=== PATIENT | female | born 1980 ===

== ENCOUNTER → 2018-07-18 | Outpatient (CLI) | payer OTHER ==
[~2018-07-18] MED LIST: ACE3 PO; CYC10 PO; DICL1TAB52 PO; ESC10 PO; FER325 PO; HYDR-654 PO; IBU800 PO; KET10 PO; LOR5 PO; MELO-207 PO; METH-542 PO; METHO500 PO; NO ROUTINE MEDS; OXYC-823 PO; OXYC1TAB54 PO; PER PO; PREN-127 PO; TOPI50TA92 PO; [UNRECOGNIZED DRUG - REMARK]
[2018-07-18 17:09] LABS: LDL CHOLESTEROL 116 mg/dl
== END ==
LOC: LAB 16:15
PROVIDERS: ATTEND Clinical Nurse Specialist Family Health
DX: R53.83 Other fatigue (principal); Z79.899 Other long term (current) drug therapy
CPT/HCPCS: 36415; 82040; 82247; 82310; 82374; 82435; 82465; 82565; 82947; 83718; 84075; 84132; 84155; 84295; 84443; 84450; 84460; 84478; 84520

== ENCOUNTER → 2018-11-16 | Outpatient (CLI) | payer OTHER ==
--- NOTE | 2018-11-16 14:45 | RADIOLOGY IMAGING REPORT ---
FACILITY: [facility] - [place] PATIENT NAME: Hortencia Martinez : 1980 MR: [id number] V: [id number] EXAM DATE: [id number] ORDERING PHYSICIAN: NELI HOOKER TECHNOLOGIST: Location: [facility] - [place] Patient: Hortencia Martinez : 1980 Visit/Account:[id number] Date of Sevice: 11/16/2018 EXAMINATION: MR SPINE LUMBAR W/O CON INDICATION: Back pain radiates into right leg COMPARISON: July 12, 2009 TECHNIQUE: Multiplane MR imaging was performed through the lumbar spine without contrast. FINDINGS: Vertebral bodies and posterior elements: Normal Conus position/signal: Normal Marrow signal: Minimal degenerative marrow edema surrounds the L5-S1 disc space. Extraspinal structures including psoas muscles/paraspinal soft tissues: Normal L1-2: Normal L2-3: Normal. L3-4: Minimal new right foraminal narrowing. Mild new left foraminal narrowing, otherwise normal. L4-5: Moderate right and mild to moderate left unchanged foraminal narrowing, otherwise normal. L5-S1: Slight unchanged retrolisthesis of L5 on S1. Moderate disc space degeneration has progressed. Small disc protrusion as before. New superimposed right posterior disc extrusion. The disc extrus ion measures 7.5 mm AP dimension and effaces the right lateral recess. The disc extrusion compresses the right S1 nerve in the lateral recess. The disc extrusion additionally results in mild new canal narrowing. Moderate unchanged left greater than right foraminal narrowing. IMPRESSION: 1. New right 7.5 mm L5-S1 disc extrusion effaces the right lateral recess and compresses the right S 1 nerve in the lateral recess. This additionally results in mild new canal narrowing. 2. Moderate L5-S1 disc space degeneration has progressed. 3. New L3-4 foraminal narrowing and unchanged L4-5 and L5-S1 foraminal narrowing. See comments above . Report Dictated By: Pietro Villela MD at 11/16/2018 2:30 PM Report E-Signed By: Pietro Villela MD at 11/16/2018 2:40 PM WSN:[id number]
--- NOTE | 2018-11-16 15:35 | RADIOLOGY IMAGING REPORT ---
FACILITY: [facility] - [place] PATIENT NAME: Hortencia Martinez : 1980 MR: [id number] V: [id number] EXAM DATE: ORDERING PHYSICIAN: NELI HOOKER TECHNOLOGIST: Location: [facility] - [place] Patient: Hortencia Martinez : 1980 Visit/Account:[id number] Date of Sevice: 11/16/2018 Exam type: L-SPINE 2 OR 3 VIEW History: Chronic low back pain Comparison: MR the lumbar spine performed today. Findings: AP and lateral views of the lumbar spine were submitted in addition to coned-down lateral v iew at L5-S1 There five nonrib-bearing lumbar-type vertebral bodies present. There is no evidence of acute fractu res or subluxations. There is moderate disc space narrowing at L5-S1. Surgical clips identified in the right upper quadrant of abdomen. IMPRESSION: 1. Moderate disc space narrowing L5-S1 Report Dictated By: Mercedes Gillespie MD at 11/16/2018 3:29 PM Report E-Signed By: Mercedes Gillespie MD at 11/16/2018 3:31 PM WSN:[id number]
== END ==
LOC: MRI 01:07
PROVIDERS: ATTEND Clinical Nurse Specialist Family Health
DX: M54.5 Low back pain (principal)
CPT/HCPCS: 72100; 72148